=== PATIENT | female | born 1975 | race American Indian/Alaskan Native ===

== ENCOUNTER 2018-01-30 03:36 | Emergency (ER) | payer MEDICAID ==
[~2018-01-30] VITALS: Ht 172.7 cm; Wt 89.3 kg
[~2018-01-30 03:36] MED LIST: ALBU6.7H INH; CIP250T PO; CLIN-79 PO; CYCL-1 PO; DOCU-28 PO; DOXY-8 PO; HYDR-569 PO; MACROBID PO; MAGN296S29 PO; NITR100C6 PO; NO HOME MEDS; PANT20TA2 PO; PHEN-873 PO; PRED10TA23 PO; ZOF4T PO
[2018-01-30 04:39] LABS: PARTIAL THROMBOPLASTIN TIME 26 SECONDS (22-32)
[2018-01-30] MEDS ORDERED: cloNIDine 0.1 mg tablet PO ONE (04:39)
[2018-01-30 04:41] LABS: BASOPHILS % (AUTO) 0.4 % (0-1); EOSINOPHILS # (AUTO) 0.3 X10'3 (0-0.9); EOSINOPHILS % (AUTO) 4.9 % (0-6); HEMATOCRIT 32.6 % (35.0-45.0); LYMPHOCYTES # (AUTO) 1.8 X10'3 (1.1-4.8); LYMPHOCYTES % (AUTO) 27.6 % (21-51); MEAN CORPUSCULAR HEMOGLOBIN 26.6 PG (27.0-31.0); MEAN CORPUSCULAR HGB CONC 33.8 % (33.0-36.5); MEAN CORPUSCULAR VOLUME 78.6 FL (78-98); MEAN PLATELET VOLUME 7.5 FL (7.4-10.4); MONOCYTES # (AUTO) 0.5 X10'3 (0-0.9); MONOCYTES % (AUTO) 7.3 % (2-12); NEUTROPHILS # (AUTO) 3.8 X10'3 (1.8-7.7); NEUTROPHILS % (AUTO) 59.8 % (42-75); PLATELET COUNT 310 X10'3 (140-440); RED BLOOD COUNT 4.15 X10'6 (4.20-5.60); RED CELL DISTRIBUTION WIDTH 14.9 % (11.5-14.5); WHITE BLOOD COUNT 6.4 X10'3 (4.5-11.0)
[2018-01-30 04:48] LABS: ALANINE AMINOTRANSFERASE 22 U/L (12-78); ALBUMIN/GLOBULIN RATIO 0.6 (1.1-1.5); ALKALINE PHOSPHATASE 79 IU/L (46-116); ANION GAP 7 (8-16); ASPARTATE AMINO TRANSFERASE 15 U/L (10-37); BILIRUBIN,TOTAL 0.2 MG/DL (0.1-1.0); BLOOD UREA NITROGEN 15 MG/DL (7-18); BUN/CREATININE RATIO 16.1 (6.6-38.0); CALCIUM 8.6 MG/DL (8.5-10.1); CHLORIDE 104 MMOL/L (99-107); CREATININE 0.93 MG/DL (0.40-0.90); GLUCOSE 115 MG/DL (70-104); POTASSIUM 3.4 MMOL/L (3.5-5.1); SODIUM 141 MMOL/L (135-145); TOTAL PROTEIN 7.7 G/DL (6.4-8.2); eGFR 66 ML/MIN
[2018-01-30] MEDS ORDERED: LISI-600 PO (05:08)
[2018-01-30 05:29] VITALS: BP 150/94
[2018-01-30] MEDS ORDERED: cloNIDine 0.1 mg tablet PO SCH (08:00)
== END 2018-01-30 05:30 | disposition home or self-care (01) ==
LOC: ER 03:37
DX: R07.89 Other chest pain (principal); I10 Essential (primary) hypertension; I49.3 Ventricular premature depolarization; J45.909 Unspecified asthma, uncomplicated; G89.29 Other chronic pain; F17.200 Nicotine dependence, unspecified, uncomplicated; F11.10 Opioid abuse, uncomplicated; Z88.5 Allergy status to narcotic agent; Z88.0 Allergy status to penicillin; Z88.2 Allergy status to sulfonamides; Z56.0 Unemployment, unspecified; Z98.890 Other specified postprocedural states; Z79.899 Other long term (current) drug therapy
CPT/HCPCS: 36415; 71045; 80053; 84484; 85025; 85610; 85730; 93005; 99285

== ENCOUNTER 2018-02-13 14:10 | Emergency (ER) | payer MEDICAID ==
[~2018-02-13] VITALS: Ht 172.7 cm; Wt 70.0 kg
[~2018-02-13 14:10] MED LIST changes: +LISI-600 PO
[2018-02-13 15:17] VITALS: BP 127/77
[2018-02-13] MEDS ORDERED: AZIT250T PO (16:23)
== END 2018-02-13 16:38 | disposition home or self-care (01) ==
LOC: ER 14:10
DX: J06.9 Acute upper respiratory infection, unspecified (principal); I10 Essential (primary) hypertension; J45.909 Unspecified asthma, uncomplicated; G89.29 Other chronic pain; F11.10 Opioid abuse, uncomplicated; Z86.19 Personal history of other infectious and parasitic diseases; Z98.890 Other specified postprocedural states; Z85.89 Personal history of malignant neoplasm of other organs and systems; Z56.0 Unemployment, unspecified; Z88.0 Allergy status to penicillin; Z88.2 Allergy status to sulfonamides; Z88.5 Allergy status to narcotic agent; Z79.899 Other long term (current) drug therapy
CPT/HCPCS: 99283

== ENCOUNTER 2019-01-27 18:30 | Emergency (ER) | payer MEDICAID ==
[~2019-01-27] VITALS: Ht 172.7 cm; Wt 75.0 kg
[~2019-01-27 18:30] MED LIST changes: +AZIT250T PO; -CLIN-79 PO; +CLIN150C8 PO; +HYDR-4383 PO; -LISI-600 PO; +PHEN-786 PO; -PHEN-873 PO
[2019-01-27] MEDS ORDERED: acetaminophen 325mg tablet PO ONE (18:55)
--- NOTE | 2019-01-27 19:16 | NUR ---
Discussed pt's pain status w/ Dr Meraz. New orders received for Toradol IM to be followed by [facility] if ineffectived.
[2019-01-27] MEDS ORDERED: ketorolac trometh inj. 60 MG/2 ML VIAL IM ONE (19:20)
[2019-01-27] MEDS ORDERED: HYDROcodone/acetaminophen 10/325mg tab PO ONE (19:20)
[2019-01-27 19:34] VITALS: BP 141/77
[2019-01-27] MEDS ORDERED: HYDROmorphone 1 mg/ml syringe IM ONE (20:20)
[2019-01-27] MEDS ORDERED: ONDA4TAB6 PO (20:20)
[2019-01-27] MEDS ORDERED: HYDR-4353 PO (20:21)
== END 2019-01-27 21:26 | disposition home or self-care (01) ==
LOC: ER 18:31
DX: M23.91 Unspecified internal derangement of right knee (principal); I10 Essential (primary) hypertension; J45.909 Unspecified asthma, uncomplicated; G89.29 Other chronic pain; F11.90 Opioid use, unspecified, uncomplicated; Z86.19 Personal history of other infectious and parasitic diseases; Z85.89 Personal history of malignant neoplasm of other organs and systems; Z98.890 Other specified postprocedural states; Z98.51 Tubal ligation status; Z56.0 Unemployment, unspecified; Z88.0 Allergy status to penicillin; Z88.2 Allergy status to sulfonamides; Z88.5 Allergy status to narcotic agent; Z79.899 Other long term (current) drug therapy
CPT/HCPCS: 29505; 73564; 96372; 99283; J1170; J1885

== ENCOUNTER 2019-02-05 10:19 | Emergency (ER) | payer MEDICAID ==
[~2019-02-05] VITALS: Ht 172.7 cm; Wt 76.0 kg
[~2019-02-05 10:19] MED LIST changes: +HYDR-4353 PO; +ONDA4TAB6 PO
--- NOTE | 2019-02-05 10:55 | NUR ---
PT REPORTING FEELING PALPITATIONS. HEART MONITOR SHOWING PVC'S ABOUT EVERY 10-20 BEATS. EKG ORDERED, PT PLACED ON HEART MONITOR.
[2019-02-05] MEDS ORDERED: CLIN150C8 PO (11:59)
[2019-02-05 12:12] VITALS: BP 142/80
== END 2019-02-05 12:13 | disposition home or self-care (01) ==
LOC: ER 10:19
DX: L02.415 Cutaneous abscess of right lower limb (principal); L03.115 Cellulitis of right lower limb; R00.2 Palpitations; I10 Essential (primary) hypertension; J45.909 Unspecified asthma, uncomplicated; G89.29 Other chronic pain; F15.90 Other stimulant use, unspecified, uncomplicated; Z86.19 Personal history of other infectious and parasitic diseases; Z85.89 Personal history of malignant neoplasm of other organs and systems; Z98.51 Tubal ligation status; Z98.890 Other specified postprocedural states; Z56.0 Unemployment, unspecified; Z88.0 Allergy status to penicillin; Z88.2 Allergy status to sulfonamides; Z88.5 Allergy status to narcotic agent; Z79.899 Other long term (current) drug therapy
CPT/HCPCS: 10060; 93005; 99283

== ENCOUNTER 2019-07-09 23:14 | Emergency (ER) | payer MEDICAID ==
[~2019-07-09] VITALS: Ht 172.7 cm; Wt 75.0 kg
[~2019-07-09 23:14] MED LIST changes: -ALBU6.7H INH; +ALBU6.7H9 INH; -HYDR-4353 PO
[2019-07-09 23:18] VITALS: BP 169/112
[2019-07-09] MEDS ORDERED: CEPH500C5 PO (23:28)
[2019-07-09] MEDS ORDERED: cephalexin 250mg capsule PO ONE (23:30)
[2019-07-09] MEDS ORDERED: LIDOcaine 1% w/epiNEPHrine 1:200,000 30ml vial IM ONE (23:30)
== END 2019-07-09 23:54 | disposition home or self-care (01) ==
LOC: ER 23:14
DX: L02.415 Cutaneous abscess of right lower limb (principal); L03.115 Cellulitis of right lower limb; I10 Essential (primary) hypertension; J45.909 Unspecified asthma, uncomplicated; G89.29 Other chronic pain; F31.9 Bipolar disorder, unspecified; F15.90 Other stimulant use, unspecified, uncomplicated; Z98.51 Tubal ligation status; Z98.890 Other specified postprocedural states; Z56.0 Unemployment, unspecified; Z88.5 Allergy status to narcotic agent; Z79.2 Long term (current) use of antibiotics; Z79.899 Other long term (current) drug therapy
CPT/HCPCS: 10060; 99283

== ENCOUNTER 2019-09-15 11:04 | Emergency (ER) | payer MEDICAID ==
[~2019-09-15] VITALS: Ht 172.7 cm; Wt 90.0 kg
[~2019-09-15 11:04] MED LIST changes: +CEPH500C5 PO
[2019-09-15] MEDS ORDERED: normal saline 1000ML IV soln IVB ONE (11:40)
[2019-09-15] MEDS ORDERED: ketorolac tromethamine 15mg/ml inj. IV ONE (11:40)
--- NOTE | 2019-09-15 12:22 | NUR ---
TRIED IV TWICE ON THE PT ALSO BY NURSE LUZ PENA UNABLE TO START AN IV ,KRISTA ESCOBAR WILL TRY WITH ULTRASOUND GUIDE PT IS HARD TO STICK.INSTRUCTOR DECORATING IN ROOM TO TAKE PT FOR CT SCAN,PT SIGNIFICANT OTHER AT BEDSIDE.
[2019-09-15 12:24] VITALS: BP 126/80
[2019-09-15 12:32] LABS: BASOPHILS % (AUTO) 0.3 % (0-1); EOSINOPHILS # (AUTO) 0.1 X10'3 (0-0.9); EOSINOPHILS % (AUTO) 1.1 % (0-6); HEMATOCRIT 35.7 % (35.0-45.0); HEMOGLOBIN 11.9 g/dl (12.0-16.0); LYMPHOCYTES # (AUTO) 2.1 X10'3 (1.1-4.8); LYMPHOCYTES % (AUTO) 21.5 % (21-51); MEAN CORPUSCULAR HEMOGLOBIN 28.9 PG (27.0-31.0); MEAN CORPUSCULAR HGB CONC 33.3 g/dL (33.0-36.5); MEAN CORPUSCULAR VOLUME 87.1 FL (78-98); MEAN PLATELET VOLUME 7.9 FL (7.4-10.4); MONOCYTES # (AUTO) 0.5 X10'3 (0-0.9); MONOCYTES % (AUTO) 4.7 % (2-12); NEUTROPHILS # (AUTO) 7.2 X10'3 (1.8-7.7); NEUTROPHILS % (AUTO) 72.4 % (42-75); PLATELET COUNT 210 X10'3 (140-440); RED CELL DISTRIBUTION WIDTH 15.4 % (11.5-14.5); WHITE BLOOD COUNT 9.9 X10'3 (4.5-11.0)
[2019-09-15 12:47] LABS: URINE HCG NEGATIVE (NEG)
--- NOTE | 2019-09-15 12:53 | NUR ---
pt back from ct scan,urine obtained and sent to lab,iv started ,medicated with torodol inj as prescribed by provider,iv fluid infusing as per md orders.
[2019-09-15 12:58] LABS: ALANINE AMINOTRANSFERASE 19 U/L (12-78); ALBUMIN 3.1 G/DL (3.4-5.0); ALBUMIN/GLOBULIN RATIO 0.8 (1.1-1.5); ALKALINE PHOSPHATASE 77 IU/L (46-116); ANION GAP 5 (8-16); ASPARTATE AMINO TRANSFERASE 17 U/L (10-37); BILIRUBIN,TOTAL 0.3 MG/DL (0.1-1.0); BLOOD UREA NITROGEN 15 MG/DL (7-18); BUN/CREATININE RATIO 13.8 (6.6-38.0); CALCIUM 8.2 MG/DL (8.5-10.1); CHLORIDE 106 MMOL/L (99-107); CREATININE 1.09 MG/DL (0.40-0.90); GLUCOSE 80 MG/DL (70-104); LIPASE < 50 U/L (73-393); POTASSIUM 4.1 MMOL/L (3.5-5.1); SODIUM 140 MMOL/L (135-145); eGFR 55 ML/MIN
[2019-09-15 12:58] LABS: CLARITY,URINE SLIGHTLY CLOUDY (Clear); COLOR,URINE YELLOW (Yellow); GLUCOSE, URINE NEGATIVE (Neg); KETONES,URINE TRACE mg/dl (Neg); LEUKOCYTE ESTERASE ,URINE TRACE (Neg); NITRITES, URINE NEGATIVE (Neg); OCCULT BLOOD,URINE TRACE-LYSED (Neg); PROTEIN,URINE NEGATIVE (Neg)
[2019-09-15 13:03] LABS: UA COLLECTION TYPE CLN CATCH MIDSTREAM
[2019-09-15 13:15] LABS: BACTERIA,URINE 4+ /HPF (Neg); RBC,URINE 0-2 /HPF (0-2); SQUAMOUS EPITHELIAL CELL,UR MANY /LPF (FEW)
[2019-09-15 13:16] LABS: MUCUS STRANDS FEW /LPF (Neg)
--- NOTE | 2019-09-15 13:32 | NUR ---
came back from 15 min break ,rn javed was covering,pt lft the room pulled her iv out and left with all her belonging ,md obregon wentto pt room to explain her that ct scan report is negative ,pt got upset as per dr obregon and she left without information . aware .
== END 2019-09-15 13:30 | disposition left against medical advice (07) ==
LOC: ER 11:05
DX: R10.31 Right lower quadrant pain (principal); I10 Essential (primary) hypertension; J45.909 Unspecified asthma, uncomplicated; G89.29 Other chronic pain; F31.9 Bipolar disorder, unspecified; F15.90 Other stimulant use, unspecified, uncomplicated; Z88.6 Allergy status to analgesic agent; Z91.041 Radiographic dye allergy status; Z79.899 Other long term (current) drug therapy; Z79.2 Long term (current) use of antibiotics; Z98.890 Other specified postprocedural states; Z98.51 Tubal ligation status; Z56.0 Unemployment, unspecified; Z85.41 Personal history of malignant neoplasm of cervix uteri; Z86.19 Personal history of other infectious and parasitic diseases
CPT/HCPCS: 36415; 74176; 80053; 81001; 81025; 83690; 85025; 96374; 99284; J1885; J7040

== ENCOUNTER 2019-11-18 09:15 | Emergency (ER) | payer MEDICAID ==
[~2019-11-18] VITALS: Ht 172.7 cm; Wt 93.4 kg
[2019-11-18 09:25] VITALS: BP 156/97
[2019-11-18] MEDS ORDERED: SULF1TAB49 PO (10:12)
[2019-11-18] MEDS ORDERED: METH-360 PO (10:17)
== END 2019-11-18 10:35 | disposition home or self-care (01) ==
LOC: ER 09:15
DX: S29.012A Strain of muscle and tendon of back wall of thorax, initial encounter (principal); M62.830 Muscle spasm of back; L73.8 Other specified follicular disorders; I10 Essential (primary) hypertension; J45.909 Unspecified asthma, uncomplicated; G89.29 Other chronic pain; F15.90 Other stimulant use, unspecified, uncomplicated; F17.200 Nicotine dependence, unspecified, uncomplicated; Z56.0 Unemployment, unspecified; Z86.14 Personal history of Methicillin resistant Staphylococcus aureus infection; Z98.890 Other specified postprocedural states; Z98.51 Tubal ligation status; Z79.899 Other long term (current) drug therapy; Z88.5 Allergy status to narcotic agent; Z91.041 Radiographic dye allergy status; X58.XXXA Exposure to other specified factors, initial encounter; Y93.89 Activity, other specified; Y92.89 Other specified places as the place of occurrence of the external cause; Y99.9 Unspecified external cause status
CPT/HCPCS: 99283

== ENCOUNTER 2020-05-02 13:10 | Emergency (ER) | payer MEDICAID ==
[~2020-05-02] VITALS: Ht 172.7 cm; Wt 96.8 kg
[~2020-05-02 13:10] MED LIST changes: +METH-360 PO
[2020-05-02 13:32] VITALS: BP 142/101
[2020-05-02] MEDS ORDERED: SULF1TAB49 PO (14:58)
[2020-05-02] MEDS ORDERED: CEPH500C5 PO (14:58)
[2020-05-02] MEDS ORDERED: LACT1CAP65 PO (14:58)
== END 2020-05-02 15:07 | disposition home or self-care (01) ==
LOC: ER 13:11
DX: L03.115 Cellulitis of right lower limb (principal); I10 Essential (primary) hypertension; J45.909 Unspecified asthma, uncomplicated; G89.29 Other chronic pain; F31.9 Bipolar disorder, unspecified; F15.90 Other stimulant use, unspecified, uncomplicated; Z86.19 Personal history of other infectious and parasitic diseases; Z87.440 Personal history of urinary (tract) infections; Z86.14 Personal history of Methicillin resistant Staphylococcus aureus infection; Z98.51 Tubal ligation status; Z98.890 Other specified postprocedural states; Z56.0 Unemployment, unspecified; Z88.5 Allergy status to narcotic agent; Z79.2 Long term (current) use of antibiotics; Z79.899 Other long term (current) drug therapy
CPT/HCPCS: 99283

== ENCOUNTER 2020-05-04 16:25 | Emergency (ER) | payer MEDICAID ==
[~2020-05-04 16:25] MED LIST changes: +LACT1CAP65 PO; +SULF1TAB49 PO
[2020-05-04] MEDS ORDERED: LIDOcaine 1% W/epiNEPHrine 1:200,000 10ml vial IJ ONE (18:05)
[2020-05-04] MEDS ORDERED: HYDROcodone/acetaminophen 5mg/325mg tablet PO ONE (18:40)
[2020-05-04] MEDS ORDERED: HYDR-3965 PO (18:46)
[2020-05-04 19:03] VITALS: BP 143/98
== END 2020-05-04 19:06 | disposition home or self-care (01) ==
LOC: ER 16:26
DX: L02.415 Cutaneous abscess of right lower limb (principal); L03.115 Cellulitis of right lower limb; I10 Essential (primary) hypertension; J45.909 Unspecified asthma, uncomplicated; G89.29 Other chronic pain; F15.90 Other stimulant use, unspecified, uncomplicated; F31.9 Bipolar disorder, unspecified; Z86.19 Personal history of other infectious and parasitic diseases; Z98.51 Tubal ligation status; Z98.890 Other specified postprocedural states; Z56.0 Unemployment, unspecified; Z88.5 Allergy status to narcotic agent; Z79.2 Long term (current) use of antibiotics; Z79.899 Other long term (current) drug therapy
CPT/HCPCS: 10060; 99283

== ENCOUNTER 2020-05-06 15:18 | Emergency (ER) | payer MEDICAID ==
[~2020-05-06] VITALS: Ht 172.7 cm; Wt 60.0 kg
[~2020-05-06 15:18] MED LIST changes: +HYDR-3965 PO
[2020-05-06 15:26] VITALS: BP 142/88
== END 2020-05-06 16:54 | disposition home or self-care (01) ==
LOC: ER 15:19
DX: L02.419 Cutaneous abscess of limb, unspecified (principal); L03.115 Cellulitis of right lower limb; I10 Essential (primary) hypertension; J45.909 Unspecified asthma, uncomplicated; G89.29 Other chronic pain; F31.9 Bipolar disorder, unspecified; F17.200 Nicotine dependence, unspecified, uncomplicated; F15.90 Other stimulant use, unspecified, uncomplicated; Z76.89 Persons encountering health services in other specified circumstances; Z87.440 Personal history of urinary (tract) infections; Z86.14 Personal history of Methicillin resistant Staphylococcus aureus infection; Z85.41 Personal history of malignant neoplasm of cervix uteri; Z98.51 Tubal ligation status; Z98.890 Other specified postprocedural states; Z56.0 Unemployment, unspecified; Z88.5 Allergy status to narcotic agent; Z79.2 Long term (current) use of antibiotics; Z79.899 Other long term (current) drug therapy
CPT/HCPCS: 99282

== ENCOUNTER 2020-09-18 12:13 | Emergency (ER) | payer MEDICAID ==
[~2020-09-18] VITALS: Ht 172.7 cm; Wt 101.1 kg
[~2020-09-18 12:13] MED LIST changes: -HYDR-3965 PO; -SULF1TAB49 PO
[2020-09-18 12:50] VITALS: BP 143/97
[2020-09-18] MEDS ORDERED: SULF1TAB49 PO (15:09)
[2020-09-18] MEDS ORDERED: CEPH500C5 PO (15:09)
== END 2020-09-18 15:58 | disposition home or self-care (01) ==
LOC: ER 12:13
DX: L03.115 Cellulitis of right lower limb (principal); I10 Essential (primary) hypertension; J45.909 Unspecified asthma, uncomplicated; G89.29 Other chronic pain; M54.9 Dorsalgia, unspecified; F31.9 Bipolar disorder, unspecified; Q89.9 Congenital malformation, unspecified; Z85.41 Personal history of malignant neoplasm of cervix uteri; Z56.0 Unemployment, unspecified; Z88.5 Allergy status to narcotic agent; Z79.899 Other long term (current) drug therapy; Z79.2 Long term (current) use of antibiotics
CPT/HCPCS: 99283

== ENCOUNTER → 2020-09-29 | Emergency (ER) | payer MEDICAID ==
[~2020-09-29] VITALS: Ht 172.7 cm; Wt 99.7 kg
[~2020-09-29] MED LIST changes: +CEPH250T PO; +DOXY100T56 PO; +IBUP-1984 PO
[2020-09-29 13:00] VITALS: BP 114/90
== END | disposition home or self-care (01) ==
LOC: ER 12:42
DX: U07.1 COVID-19 (principal); L03.113 Cellulitis of right upper limb; I10 Essential (primary) hypertension; Z87.448 Personal history of other diseases of urinary system; G89.29 Other chronic pain; F31.9 Bipolar disorder, unspecified; J45.909 Unspecified asthma, uncomplicated; Z88.5 Allergy status to narcotic agent; Z79.899 Other long term (current) drug therapy; Z20.828 Contact with and (suspected) exposure to other viral communicable diseases
CPT/HCPCS: 36415; 87635; 99283; 99284

== ENCOUNTER 2021-03-16 20:20 | Emergency (ER) | payer MEDICAID ==
[~2021-03-16 20:20] MED LIST changes: +CEPH-585 PO; -CEPH250T PO; -CEPH500C5 PO; -DOXY100T56 PO; -IBUP-1984 PO
== END 2021-03-16 20:55 | disposition left against medical advice (07) ==
LOC: ER 20:20
DX: Z53.21 Procedure and treatment not carried out due to patient leaving prior to being seen by health care provider (principal)

== ENCOUNTER 2021-03-18 14:21 | Emergency (ER) | payer MEDICAID | END 2021-03-18 15:06 | disposition left against medical advice (07) | LOC: ER 14:22 | DX: M79.643 Pain in unspecified hand (principal); Z53.21 Procedure and treatment not carried out due to patient leaving prior to being seen by health care provider ==

== ENCOUNTER 2021-03-20 15:42 | Emergency (ER) | payer MEDICAID ==
[~2021-03-20] VITALS: Ht 175.3 cm; Wt 95.5 kg
[2021-03-20] MEDS ORDERED: SULF1TAB49 PO (17:18)
[2021-03-20] MEDS ORDERED: CEPH-585 PO (17:18)
[2021-03-20 17:28] VITALS: BP 129/105
== END 2021-03-20 17:29 | disposition home or self-care (01) ==
LOC: ER 15:43
DX: L02.414 Cutaneous abscess of left upper limb (principal); I10 Essential (primary) hypertension; J45.909 Unspecified asthma, uncomplicated; G89.29 Other chronic pain; F31.9 Bipolar disorder, unspecified; Z98.51 Tubal ligation status; Z98.890 Other specified postprocedural states; Z56.0 Unemployment, unspecified; Z88.5 Allergy status to narcotic agent; Z79.899 Other long term (current) drug therapy
CPT/HCPCS: 99284

== ENCOUNTER 2021-06-03 07:11 | Emergency (ER) | payer MEDICAID ==
[~2021-06-03] VITALS: Ht 172.7 cm; Wt 93.2 kg
[2021-06-03 07:14] VITALS: BP 177/110
== END 2021-06-03 12:50 | disposition left against medical advice (07) ==
LOC: ER 07:13
DX: G43.909 Migraine, unspecified, not intractable, without status migrainosus (principal); Z53.21 Procedure and treatment not carried out due to patient leaving prior to being seen by health care provider

== ENCOUNTER 2021-06-07 17:01 | Emergency (ER) | payer MEDICAID ==
[~2021-06-07] VITALS: Ht 172.7 cm; Wt 93.0 kg
[2021-06-07 17:33] VITALS: BP 148/89
== END 2021-06-07 17:58 | disposition home or self-care (01) ==
LOC: ER 17:02
DX: S01.01XD Laceration without foreign body of scalp, subsequent encounter (principal); I10 Essential (primary) hypertension; J45.909 Unspecified asthma, uncomplicated; Z86.19 Personal history of other infectious and parasitic diseases; Z98.51 Tubal ligation status; Z98.890 Other specified postprocedural states; Z56.0 Unemployment, unspecified; Z88.5 Allergy status to narcotic agent; Z79.899 Other long term (current) drug therapy; Z48.02 Encounter for removal of sutures; X58.XXXD Exposure to other specified factors, subsequent encounter
CPT/HCPCS: 99281

== ENCOUNTER 2022-02-06 15:21 | Emergency (ER) | payer MEDICAID ==
[~2022-02-06] VITALS: Ht 172.7 cm; Wt 84.1 kg
[~2022-02-06 15:21] MED LIST changes: -CEPH-585 PO
[2022-02-06 16:07] LABS: ALANINE AMINOTRANSFERASE 21 U/L (12-78); ALBUMIN 3.6 G/DL (3.4-5.0); ALBUMIN/GLOBULIN RATIO 0.9 (1.1-1.5); ALKALINE PHOSPHATASE 77 IU/L (46-116); ANION GAP 6 (8-16); ASPARTATE AMINO TRANSFERASE 22 U/L (10-37); BILIRUBIN,TOTAL 0.3 MG/DL (0.1-1.0); BLOOD UREA NITROGEN 11 MG/DL (7-18); BUN/CREATININE RATIO 14.1 (6.6-38.0); CALCIUM 8.9 MG/DL (8.5-10.1); CHLORIDE 107 MMOL/L (99-107); CREATININE 0.78 MG/DL (0.40-0.90); GLUCOSE 121 MG/DL (70-104); LIPASE < 50 U/L (73-393); POTASSIUM 4.1 MMOL/L (3.5-5.1); SODIUM 141 MMOL/L (135-145); TOTAL CARBON DIOXIDE 27.6 MMOL/L (24-32); TOTAL PROTEIN 7.4 G/DL (6.4-8.2); eGFR 80 ML/MIN
[2022-02-06 16:08] LABS: BASOPHILS % (AUTO) 0.5 % (0-1); EOSINOPHILS # (AUTO) 0.2 X10'3 (0-0.9); HEMATOCRIT 39.8 % (35.0-45.0); HEMOGLOBIN 13.3 g/dl (12.0-16.0); LYMPHOCYTES # (AUTO) 1.7 X10'3 (1.1-4.8); LYMPHOCYTES % (AUTO) 21.9 % (21-51); MEAN CORPUSCULAR HEMOGLOBIN 28.6 PG (27.0-31.0); MEAN CORPUSCULAR HGB CONC 33.3 g/dL (33.0-36.5); MEAN CORPUSCULAR VOLUME 85.9 FL (78-98); MEAN PLATELET VOLUME 7.9 FL (7.4-10.4); MONOCYTES # (AUTO) 0.3 X10'3 (0-0.9); MONOCYTES % (AUTO) 4.4 % (2-12); NEUTROPHILS # (AUTO) 5.3 X10'3 (1.8-7.7); NEUTROPHILS % (AUTO) 70.2 % (42-75); PLATELET COUNT 298 X10'3 (140-440); RED BLOOD COUNT 4.64 X10'6 (4.20-5.60); RED CELL DISTRIBUTION WIDTH 15.1 % (11.5-14.5); WHITE BLOOD COUNT 7.6 X10'3 (4.5-11.0)
[2022-02-06 16:24] LABS: URINE HCG NEGATIVE (NEG)
[2022-02-06 16:25] LABS: CLARITY,URINE CLOUDY (Clear); COLOR,URINE YELLOW (Yellow); GLUCOSE, URINE NEGATIVE (Neg); KETONES,URINE NEGATIVE (Neg); LEUKOCYTE ESTERASE ,URINE NEGATIVE (Neg); NITRITES, URINE POSITIVE (Neg); OCCULT BLOOD,URINE TRACE-INTACT (Neg); PROTEIN,URINE NEGATIVE (Neg); UROBILINOGEN,URINE 0.2 E.U/dL (0.2-1.0)
[2022-02-06 16:26] LABS: UA COLLECTION TYPE CLN CATCH MIDSTREAM
[2022-02-06] MEDS ORDERED: ondansetron/PF 4mg/2ml inj IV ONE (16:35)
[2022-02-06] MEDS ORDERED: normal saline 1000ML IV soln IVB ONE (16:35)
[2022-02-06 16:38] LABS: MUCUS STRANDS MODERATE /LPF (Neg); SQUAMOUS EPITHELIAL CELL,UR MODERATE /LPF (FEW)
[2022-02-06 16:40] LABS: BACTERIA,URINE 4+ /HPF (Neg); CAL OXALATE CRYSTALS 1+ /HPF (NEGATIVE); RBC,URINE 0-2 /HPF (0-2)
[2022-02-06] MEDS ORDERED: ceFAZolin/D5W- 1GM premix 50 ML IV ONE (16:45)
[2022-02-06] MEDS ORDERED: NITR100C6 PO (16:50)
[2022-02-06] MEDS ORDERED: ONDA4TAB12 PO (17:15)
[2022-02-06 19:09] VITALS: BP 158/105
== END 2022-02-06 19:12 | disposition home or self-care (01) ==
LOC: ER 15:21
DX: R11.2 Nausea with vomiting, unspecified (principal); N30.00 Acute cystitis without hematuria; J45.909 Unspecified asthma, uncomplicated; I10 Essential (primary) hypertension; G89.29 Other chronic pain; M54.9 Dorsalgia, unspecified; F31.9 Bipolar disorder, unspecified; F17.210 Nicotine dependence, cigarettes, uncomplicated; Z56.0 Unemployment, unspecified; Z88.5 Allergy status to narcotic agent; Z88.8 Allergy status to other drugs, medicaments and biological substances; Z79.899 Other long term (current) drug therapy
CPT/HCPCS: 36415; 80053; 81001; 81025; 83690; 85025; 87077; 87088; 87186; 96361; 96365; 96375; 99284; J0690; J2405; J7030

== ENCOUNTER 2022-03-07 07:55 | Emergency (ER) | payer MEDICAID ==
[~2022-03-07] VITALS: Ht 172.7 cm; Wt 77.3 kg
[~2022-03-07 07:55] MED LIST changes: +ONDA4TAB12 PO
[2022-03-07 08:29] LABS: CLARITY,URINE SLIGHTLY CLOUDY (Clear); COLOR,URINE YELLOW (Yellow); GLUCOSE, URINE NEGATIVE (Neg); KETONES,URINE NEGATIVE (Neg); LEUKOCYTE ESTERASE ,URINE NEGATIVE (Neg); NITRITES, URINE POSITIVE (Neg); OCCULT BLOOD,URINE LARGE (Neg); PROTEIN,URINE TRACE mg/dl (Neg); UROBILINOGEN,URINE 0.2 E.U/dL (0.2-1.0)
[2022-03-07 08:31] LABS: UA COLLECTION TYPE CLN CATCH MIDSTREAM
[2022-03-07] MEDS ORDERED: iohexol 350MG/ML 100ml bottle IV ONE (08:36)
[2022-03-07 08:37] LABS: BACTERIA,URINE 4+ /HPF (Neg); RBC,URINE TNTC /HPF (0-2); SQUAMOUS EPITHELIAL CELL,UR MANY /LPF (FEW); WBC,URINE NONE SEEN /HPF (0-4)
[2022-03-07 08:38] LABS: MUCUS STRANDS NONE SEEN /LPF (Neg)
[2022-03-07 08:41] LABS: BASOPHILS % (AUTO) 0.2 % (0-1); EOSINOPHILS # (AUTO) 0.1 X10'3 (0-0.9); EOSINOPHILS % (AUTO) 1.4 % (0-6); HEMOGLOBIN 12.9 g/dl (12.0-16.0); LYMPHOCYTES # (AUTO) 1.8 X10'3 (1.1-4.8); LYMPHOCYTES % (AUTO) 23.3 % (21-51); MEAN CORPUSCULAR HEMOGLOBIN 28.2 PG (27.0-31.0); MEAN CORPUSCULAR VOLUME 85.3 FL (78-98); MEAN PLATELET VOLUME 7.6 FL (7.4-10.4); MONOCYTES # (AUTO) 0.4 X10'3 (0-0.9); MONOCYTES % (AUTO) 4.9 % (2-12); NEUTROPHILS # (AUTO) 5.4 X10'3 (1.8-7.7); NEUTROPHILS % (AUTO) 70.2 % (42-75); PLATELET COUNT 289 X10'3 (140-440); RED BLOOD COUNT 4.58 X10'6 (4.20-5.60); RED CELL DISTRIBUTION WIDTH 14.7 % (11.5-14.5); WHITE BLOOD COUNT 7.7 X10'3 (4.5-11.0)
[2022-03-07 08:45] LABS: ALBUMIN 3.2 G/DL (3.4-5.0); ANION GAP 7 (8-16); BILIRUBIN,TOTAL 0.2 MG/DL (0.1-1.0); BLOOD UREA NITROGEN 13 MG/DL (7-18); BUN/CREATININE RATIO 16.5 (6.6-38.0); CALCIUM 8.3 MG/DL (8.5-10.1); CHLORIDE 106 MMOL/L (99-107); CREATININE 0.79 MG/DL (0.40-0.90); GLUCOSE 91 MG/DL (70-104); POTASSIUM 3.6 MMOL/L (3.5-5.1); SODIUM 141 MMOL/L (135-145); TOTAL CARBON DIOXIDE 27.6 MMOL/L (24-32); TOTAL PROTEIN 6.9 G/DL (6.4-8.2); eGFR 78 ML/MIN
[2022-03-07 08:46] LABS: ALANINE AMINOTRANSFERASE 16 U/L (12-78); ALBUMIN/GLOBULIN RATIO 0.9 (1.1-1.5); ALKALINE PHOSPHATASE 64 IU/L (46-116); ASPARTATE AMINO TRANSFERASE 11 U/L (10-37)
[2022-03-07] MEDS ORDERED: HYDR-3972 PO (09:49)
[2022-03-07] MEDS ORDERED: ORPH100T2 PO (09:49)
[2022-03-07] MEDS ORDERED: HYDROcodone/acetaminophen 10/325mg tab PO ONE (10:15)
[2022-03-07] MEDS ORDERED: ketorolac trometh. 30mg/ml inj. IM ONE (10:15)
[2022-03-07 10:29] VITALS: BP 172/104
[2022-03-07 10:51] LABS: URINE AMPHETAMINE SCREEN POSITIVE (Neg); URINE BARBITUATE SCREEN NEGATIVE (Neg); URINE BENZODIAZEPINES SCREEN NEGATIVE (Neg); URINE CANNABINOID SCREEN NEGATIVE (Neg); URINE COCAINE SCREEN NEGATIVE (Neg); URINE METHADONE SCREEN NEGATIVE (Neg); URINE OPIATE SCREEN POSITIVE (Neg); URINE PHENCYCLIDINE SCREEN NEGATIVE (Neg)
== END 2022-03-07 10:30 | disposition home or self-care (01) ==
LOC: ER 07:55
DX: M54.2 Cervicalgia (principal); R51.9 Headache, unspecified; R20.0 Anesthesia of skin; I10 Essential (primary) hypertension; J45.909 Unspecified asthma, uncomplicated; Z86.14 Personal history of Methicillin resistant Staphylococcus aureus infection; F31.9 Bipolar disorder, unspecified; Z56.0 Unemployment, unspecified; Z79.899 Other long term (current) drug therapy; Z88.0 Allergy status to penicillin; Z88.5 Allergy status to narcotic agent
CPT/HCPCS: 36415; 70450; 70496; 70498; 71045; 80053; 80305; 81001; 84484; 85025; 93005; 96372; 99285; J1885; Q9967

== ENCOUNTER 2022-08-08 00:31 | Emergency (ER) | payer MEDICAID ==
[~2022-08-08] VITALS: Ht 172.7 cm; Wt 81.8 kg
[~2022-08-08 00:31] MED LIST changes: +ALBU6.7H14 INH; -ALBU6.7H9 INH; +ORPH100T2 PO
[2022-08-08] MEDS ORDERED: sulfamethoxazole/trimethoprim DS (800/160mg) tablet PO ONE (01:15)
[2022-08-08] MEDS ORDERED: SULF1TAB49 PO (01:15)
[2022-08-08] MEDS ORDERED: ondansetron 4mg rapidly disintigrating tab PO ONE (01:15)
[2022-08-08 01:36] VITALS: BP 128/82
== END 2022-08-08 01:38 | disposition home or self-care (01) ==
LOC: ER 00:32
DX: N39.0 Urinary tract infection, site not specified (principal); I10 Essential (primary) hypertension; G89.29 Other chronic pain; M54.50 Low back pain, unspecified; F31.9 Bipolar disorder, unspecified; Z88.0 Allergy status to penicillin; Z88.5 Allergy status to narcotic agent; Z98.51 Tubal ligation status; Z56.0 Unemployment, unspecified
CPT/HCPCS: 99283

== ENCOUNTER 2022-08-12 22:39 | Emergency (ER) | payer MEDICAID ==
[~2022-08-12] VITALS: Ht 172.7 cm; Wt 89.0 kg
[~2022-08-12 22:39] MED LIST changes: +SULF1TAB49 PO
[2022-08-12 23:45] LABS: BASOPHILS % (AUTO) 0.3 % (0-1); EOSINOPHILS # (AUTO) 0.1 X10'3 (0-0.9); EOSINOPHILS % (AUTO) 1.6 % (0-6); HEMATOCRIT 38.9 % (35.0-45.0); LYMPHOCYTES # (AUTO) 1.9 X10'3 (1.1-4.8); MEAN CORPUSCULAR HEMOGLOBIN 29.2 PG (27.0-31.0); MEAN CORPUSCULAR HGB CONC 33.4 g/dL (33.0-36.5); MEAN CORPUSCULAR VOLUME 87.2 FL (78-98); MEAN PLATELET VOLUME 7.5 FL (7.4-10.4); MONOCYTES # (AUTO) 0.4 X10'3 (0-0.9); MONOCYTES % (AUTO) 6.1 % (2-12); NEUTROPHILS # (AUTO) 3.7 X10'3 (1.8-7.7); PLATELET COUNT 284 X10'3 (140-440); RED BLOOD COUNT 4.46 X10'6 (4.20-5.60); RED CELL DISTRIBUTION WIDTH 14.3 % (11.5-14.5)
[2022-08-12 23:56] LABS: ALANINE AMINOTRANSFERASE 17 U/L (12-78); ALBUMIN 3.6 G/DL (3.4-5.0); ALKALINE PHOSPHATASE 74 IU/L (46-116); ANION GAP 9 (8-16); ASPARTATE AMINO TRANSFERASE 18 U/L (10-37); BILIRUBIN,TOTAL 0.1 MG/DL (0.1-1.0); BLOOD UREA NITROGEN 16 MG/DL (7-18); BUN/CREATININE RATIO 13.7 (6.6-38.0); CALCIUM 8.9 MG/DL (8.5-10.1); CHLORIDE 101 MMOL/L (99-107); CREATININE 1.17 MG/DL (0.40-0.90); GLUCOSE 87 MG/DL (70-104); POTASSIUM 4.1 MMOL/L (3.5-5.1); SODIUM 137 MMOL/L (135-145); TOTAL CARBON DIOXIDE 26.8 MMOL/L (24-32); TOTAL PROTEIN 7.3 G/DL (6.4-8.2); eGFR 50 ML/MIN
[2022-08-13 03:47] LABS: CLARITY,URINE CLEAR (Clear); COLOR,URINE YELLOW (Yellow); GLUCOSE, URINE NEGATIVE (Neg); KETONES,URINE NEGATIVE (Neg); LEUKOCYTE ESTERASE ,URINE NEGATIVE (Neg); NITRITES, URINE NEGATIVE (Neg); OCCULT BLOOD,URINE NEGATIVE (Neg); PH,URINE 5.5 (4.8-8.0); PROTEIN,URINE NEGATIVE (Neg); UROBILINOGEN,URINE 0.2 E.U/dL (0.2-1.0)
[2022-08-13 03:53] LABS: UA COLLECTION TYPE CLN CATCH MIDSTREAM
[2022-08-13 04:03] LABS: C-REACTIVE PROTEIN 0.05 MG/DL (0.0-0.5)
[2022-08-13 04:24] LABS: URINE AMPHETAMINE SCREEN POSITIVE (Neg); URINE BARBITUATE SCREEN NEGATIVE (Neg); URINE BENZODIAZEPINES SCREEN NEGATIVE (Neg); URINE CANNABINOID SCREEN NEGATIVE (Neg); URINE COCAINE SCREEN POSITIVE (Neg); URINE METHADONE SCREEN NEGATIVE (Neg); URINE OPIATE SCREEN NEGATIVE (Neg); URINE PHENCYCLIDINE SCREEN NEGATIVE (Neg)
[2022-08-13] MEDS ORDERED: furosemide 20MG tablet PO ONE ×2 (04:25→05:50)
--- NOTE | 2022-08-13 04:49 | NUR ---
po med given
--- NOTE | 2022-08-13 05:59 | NUR ---
po med given
== END 2022-08-13 06:11 | disposition home or self-care (01) ==
LOC: ER 22:40
DX: R60.0 Localized edema (principal); F19.10 Other psychoactive substance abuse, uncomplicated; R06.02 Shortness of breath; N39.0 Urinary tract infection, site not specified; I10 Essential (primary) hypertension; J45.909 Unspecified asthma, uncomplicated; G89.29 Other chronic pain; F31.9 Bipolar disorder, unspecified; F15.90 Other stimulant use, unspecified, uncomplicated; Z86.19 Personal history of other infectious and parasitic diseases; Z86.14 Personal history of Methicillin resistant Staphylococcus aureus infection; Z85.41 Personal history of malignant neoplasm of cervix uteri; Z98.51 Tubal ligation status; Z98.890 Other specified postprocedural states; Z56.0 Unemployment, unspecified; Z88.0 Allergy status to penicillin; Z88.5 Allergy status to narcotic agent; Z79.2 Long term (current) use of antibiotics; Z79.899 Other long term (current) drug therapy
CPT/HCPCS: 36415; 71045; 80053; 80305; 81003; 83735; 83880; 84484; 85025; 86140; 93005; 99285

== ENCOUNTER 2023-02-24 20:09 | Emergency (ER) | payer MEDICAID ==
[~2023-02-24] VITALS: Ht 172.7 cm; Wt 78.0 kg
[~2023-02-24 20:09] MED LIST changes: +METH4TAB3 PO; +NAPR-56 PO; -ORPH100T2 PO; +ORPH100T4 PO; -SULF1TAB49 PO
[2023-02-24 20:12] VITALS: BP 171/124
--- NOTE | 2023-02-24 20:33 | NUR ---
Pt in FTE. Pt c/o pain in her R hand. Pt states she was her aprox 1 week ago. Pt was given steroids and she feels worse and not better. Pt educated to POC. Pt in agreement. Pending providers eval and treatment.
[2023-02-24] MEDS ORDERED: ketorolac tromethamine 15mg/ml inj. IM ONE (21:25)
== END 2023-02-24 21:33 | disposition home or self-care (01) ==
LOC: ER 20:10
DX: M19.90 Unspecified osteoarthritis, unspecified site (principal); R22.31 Localized swelling, mass and lump, right upper limb; I10 Essential (primary) hypertension; G89.29 Other chronic pain; M54.9 Dorsalgia, unspecified; F31.9 Bipolar disorder, unspecified; F15.10 Other stimulant abuse, uncomplicated; Z86.14 Personal history of Methicillin resistant Staphylococcus aureus infection
CPT/HCPCS: 96372; 99283; J1885

== ENCOUNTER 2023-06-23 22:52 | Emergency (ER) | payer MEDICAID ==
[~2023-06-23] VITALS: Ht 172.7 cm; Wt 79.5 kg
[~2023-06-23 22:52] MED LIST changes: +CLIN-214 PO; -CLIN150C8 PO; -NAPR-56 PO
[2023-06-23 23:37] VITALS: BP 147/100; PULSE 78; RESP 14; O2SAT 100
[2023-06-24 00:04] VITALS: TEMP 97.7
[2023-06-24] MEDS ORDERED: DOXY-1 PO (01:11)
== END 2023-06-24 01:20 | disposition home or self-care (01) ==
LOC: ER 22:52
DX: S80.861A Insect bite (nonvenomous), right lower leg, initial encounter (principal); W57.XXXA Bitten or stung by nonvenomous insect and other nonvenomous arthropods, initial encounter; Y93.89 Activity, other specified; Y92.89 Other specified places as the place of occurrence of the external cause; Y99.8 Other external cause status
CPT/HCPCS: 99283

== ENCOUNTER 2023-09-15 18:21 | Emergency (ER) | payer MEDICAID ==
[~2023-09-15] VITALS: Ht 172.7 cm; Wt 92.4 kg
[2023-09-15 18:23] VITALS: BP 189/108; PULSE 91; TEMP 99.1; O2SAT 97
[2023-09-15] MEDS ORDERED: ketorolac trometh. 30mg/ml inj. IM ONE (18:40)
[2023-09-15 19:01] VITALS: RESP 18
== END 2023-09-15 19:15 | disposition home or self-care (01) ==
LOC: ER 18:22
DX: S93.401A Sprain of unspecified ligament of right ankle, initial encounter (principal); I10 Essential (primary) hypertension; J45.909 Unspecified asthma, uncomplicated; G89.29 Other chronic pain; F15.90 Other stimulant use, unspecified, uncomplicated; Z86.14 Personal history of Methicillin resistant Staphylococcus aureus infection; Z88.0 Allergy status to penicillin; Z88.8 Allergy status to other drugs, medicaments and biological substances; Z79.2 Long term (current) use of antibiotics; Z79.899 Other long term (current) drug therapy; X58.XXXA Exposure to other specified factors, initial encounter; Y93.89 Activity, other specified; Y92.89 Other specified places as the place of occurrence of the external cause; Y99.8 Other external cause status
CPT/HCPCS: 73610; 73630; 96372; 99284; J1885

== ENCOUNTER 2023-09-23 11:20 | Emergency (ER) | payer MEDICAID ==
[~2023-09-23] VITALS: Ht 172.7 cm; Wt 93.1 kg
[2023-09-23 12:06] LABS: BILIRUBIN,URINE NEGATIVE (Neg); CLARITY,URINE CLEAR (Clear); COLOR,URINE YELLOW (Yellow); GLUCOSE, URINE NEGATIVE (Neg); KETONES,URINE NEGATIVE (Neg); LEUKOCYTE ESTERASE ,URINE TRACE (Neg); NITRITES, URINE NEGATIVE (Neg); OCCULT BLOOD,URINE NEGATIVE (Neg); PH,URINE 5.5 (4.8-8.0); PROTEIN,URINE NEGATIVE (Neg); UROBILINOGEN,URINE 0.2 E.U/dL (0.2-1.0)
[2023-09-23 12:18] LABS: UA COLLECTION TYPE CLN CATCH MIDSTREAM
[2023-09-23 12:21] LABS: BACTERIA,URINE FEW /HPF (Neg); MUCUS STRANDS NONE SEEN /LPF (Neg); RBC,URINE NONE SEEN /HPF (0-2); SQUAMOUS EPITHELIAL CELL,UR MANY /LPF (FEW); TRICHOMONAS,URINE FEW /HPF (NEGATIVE); WBC,URINE 0-4 /HPF (0-4)
[2023-09-23 12:24] LABS: ALANINE AMINOTRANSFERASE 19 U/L (12-78); ALBUMIN 3.5 G/DL (3.4-5.0); ALKALINE PHOSPHATASE 87 IU/L (46-116); ANION GAP 8 (8-16); ASPARTATE AMINO TRANSFERASE 20 U/L (10-37); BILIRUBIN,TOTAL 0.2 MG/DL (0.1-1.0); BLOOD UREA NITROGEN 19 MG/DL (7-18); BUN/CREATININE RATIO 21.8 (10.0-20.0); CALCIUM 8.8 MG/DL (8.5-10.1); CHLORIDE 104 MMOL/L (99-107); CREATININE 0.87 MG/DL (0.40-0.90); GLUCOSE 69 MG/DL (70-104); POTASSIUM 4.1 MMOL/L (3.5-5.1); SODIUM 140 MMOL/L (135-145); TOTAL CARBON DIOXIDE 28.2 MMOL/L (24-32); eCRCL 80 ML/MIN; eGFR 69 ML/MIN
[2023-09-23 12:27] LABS: URIC ACID 3.1 MG/DL (2.5-6.2)
[2023-09-23 13:07] LABS: BASOPHILS % (AUTO) 0.6 % (0-1); EOSINOPHILS # (AUTO) 0.1 X10'3 (0-0.9); EOSINOPHILS % (AUTO) 2.2 % (0-6); HEMATOCRIT 36.6 % (35.0-45.0); HEMOGLOBIN 12.3 g/dl (12.0-16.0); LYMPHOCYTES % (AUTO) 32.2 % (21-51); MEAN CORPUSCULAR HEMOGLOBIN 29.4 PG (27.0-31.0); MEAN CORPUSCULAR HGB CONC 33.5 g/dL (33.0-36.5); MEAN CORPUSCULAR VOLUME 87.8 FL (78-98); MONOCYTES # (AUTO) 0.4 X10'3 (0-0.9); MONOCYTES % (AUTO) 7.1 % (2-12); NEUTROPHILS # (AUTO) 3.6 X10'3 (1.8-7.7); NEUTROPHILS % (AUTO) 57.9 % (42-75); PLATELET COUNT 280 X10'3 (140-440); RED BLOOD COUNT 4.17 X10'6 (4.20-5.60); RED CELL DISTRIBUTION WIDTH 14.3 % (11.5-14.5); WHITE BLOOD COUNT 6.3 X10'3 (4.5-11.0)
[2023-09-23 17:04] LABS: D-DIMER 2.14 MG/L FEU (0-0.50)
[2023-09-23] MEDS ORDERED: DOXYCYCLINE 100MG CAPSULE PO STA (19:34)
[2023-09-23] MEDS ORDERED: DOXY150T9 PO (19:37)
[2023-09-23 20:08] VITALS: BP 170/68; PULSE 80; RESP 18; TEMP 98; O2SAT 99
== END 2023-09-23 20:09 | disposition home or self-care (01) ==
LOC: ER 11:21
DX: L03.115 Cellulitis of right lower limb (principal); Z20.822 Contact with and (suspected) exposure to COVID-19; I10 Essential (primary) hypertension; J45.909 Unspecified asthma, uncomplicated; F15.90 Other stimulant use, unspecified, uncomplicated; Z88.0 Allergy status to penicillin; Z88.5 Allergy status to narcotic agent; Z91.041 Radiographic dye allergy status; Z79.899 Other long term (current) drug therapy; Z98.51 Tubal ligation status
CPT/HCPCS: 36415; 80053; 81001; 84550; 85025; 85379; 87502; 87503; 87811; 93971; 99284

== ENCOUNTER 2023-11-11 22:52 | Emergency (ER) | payer MEDICAID ==
[~2023-11-11] VITALS: Ht 172.7 cm; Wt 93.8 kg
[2023-11-12 01:34] LABS: URINE HCG NEGATIVE (NEG)
[2023-11-12 01:46] LABS: BILIRUBIN,URINE NEGATIVE (Neg); CLARITY,URINE CLEAR (Clear); COLOR,URINE STRAW (Yellow); GLUCOSE, URINE NEGATIVE (Neg); KETONES,URINE NEGATIVE (Neg); LEUKOCYTE ESTERASE ,URINE NEGATIVE (Neg); NITRITES, URINE NEGATIVE (Neg); OCCULT BLOOD,URINE NEGATIVE (Neg); PROTEIN,URINE NEGATIVE (Neg); UROBILINOGEN,URINE 0.2 E.U/dL (0.2-1.0)
[2023-11-12 01:51] LABS: UA COLLECTION TYPE CLN CATCH MIDSTREAM
[2023-11-12 03:44] VITALS: BP 161/92; PULSE 90; RESP 16; TEMP 97.3; O2SAT 98
[2023-11-12] MEDS ORDERED: acetaminophen 325mg tablet PO ONE (04:05)
[2023-11-12 05:40] LABS: URINE AMPHETAMINE SCREEN POSITIVE (Neg); URINE BARBITUATE SCREEN NEGATIVE (Neg); URINE BENZODIAZEPINES SCREEN NEGATIVE (Neg); URINE CANNABINOID SCREEN NEGATIVE (Neg); URINE COCAINE SCREEN NEGATIVE (Neg); URINE METHADONE SCREEN NEGATIVE (Neg); URINE OPIATE SCREEN NEGATIVE (Neg); URINE PHENCYCLIDINE SCREEN NEGATIVE (Neg)
== END 2023-11-12 04:56 | disposition left against medical advice (07) ==
LOC: ER 22:53
DX: F19.10 Other psychoactive substance abuse, uncomplicated (principal); R22.42 Localized swelling, mass and lump, left lower limb; M54.50 Low back pain, unspecified; I10 Essential (primary) hypertension; J45.909 Unspecified asthma, uncomplicated; G89.29 Other chronic pain; F15.90 Other stimulant use, unspecified, uncomplicated; Z56.0 Unemployment, unspecified; Z87.440 Personal history of urinary (tract) infections; Z98.51 Tubal ligation status; Z86.14 Personal history of Methicillin resistant Staphylococcus aureus infection; Z88.0 Allergy status to penicillin; Z88.8 Allergy status to other drugs, medicaments and biological substances; Z79.2 Long term (current) use of antibiotics; Z79.899 Other long term (current) drug therapy
CPT/HCPCS: 80305; 81003; 81025; 99283

== ENCOUNTER 2024-09-06 21:00 | Emergency (ER) | payer MEDICAID ==
[~2024-09-06] VITALS: Ht 172.7 cm; Wt 98.0 kg
[~2024-09-06 21:00] MED LIST changes: +ALBU18HF2 INH; +ONDA-243 PO; -ONDA4TAB12 PO; +OXYC-138 PO
[2024-09-06] MEDS: normal saline 1000ML IV soln IVB ONE (21:15)
[2024-09-06] MEDS: ondansetron/PF 4mg/2ml inj IV ONE (22:15)
[2024-09-06 22:29] LABS: BASOPHILS % (AUTO) 0.2 % (0-1); EOSINOPHILS % (AUTO) 0 % (0-6); HEMATOCRIT 40.6 % (35.0-45.0); HEMOGLOBIN 13.3 g/dl (12.0-16.0); LYMPHOCYTES # (AUTO) 0.7 X10'3 (1.1-4.8); LYMPHOCYTES % (AUTO) 5.1 % (21-51); MEAN CORPUSCULAR HEMOGLOBIN 28.9 PG (27.0-31.0); MEAN CORPUSCULAR HGB CONC 32.9 g/dL (33.0-36.5); MEAN CORPUSCULAR VOLUME 87.9 FL (78-98); MEAN PLATELET VOLUME 7.4 FL (7.4-10.4); MONOCYTES # (AUTO) 0.4 X10'3 (0-0.9); MONOCYTES % (AUTO) 2.8 % (2-12); NEUTROPHILS # (AUTO) 12.7 X10'3 (1.8-7.7); NEUTROPHILS % (AUTO) 91.9 % (42-75); PLATELET COUNT 235 X10'3 (140-440); RED BLOOD COUNT 4.61 X10'6 (4.20-5.60); RED CELL DISTRIBUTION WIDTH 14.1 % (11.5-14.5); WHITE BLOOD COUNT 13.8 X10'3 (4.5-11.0)
[2024-09-06 22:43] LABS: ALANINE AMINOTRANSFERASE 25 U/L (12-78); ALBUMIN 3.4 G/DL (3.4-5.0); ALBUMIN/GLOBULIN RATIO 0.9 (1.1-1.5); ALKALINE PHOSPHATASE 84 IU/L (46-116); ANION GAP 3 (8-16); ASPARTATE AMINO TRANSFERASE 33 U/L (10-37); BILIRUBIN,TOTAL 0.2 MG/DL (0.1-1.0); BLOOD UREA NITROGEN 15 MG/DL (7-18); BUN/CREATININE RATIO 16.7 (10.0-20.0); CALCIUM 8.7 MG/DL (8.5-10.1); CHLORIDE 103 MMOL/L (99-107); GLUCOSE 129 MG/DL (70-104); POTASSIUM 3.5 MMOL/L (3.5-5.1); SODIUM 137 MMOL/L (135-145); TOTAL CARBON DIOXIDE 31.4 MMOL/L (24-32); TOTAL PROTEIN 7.2 G/DL (6.4-8.2); eCRCL 76 ML/MIN; eGFR 67 ML/MIN
[2024-09-06 22:52] LABS: PRO BRAIN NATRIURETIC PEPTIDE 116 PG/ML (0-125)
[2024-09-06 23:03] LABS: BILIRUBIN,URINE NEGATIVE (Neg); CLARITY,URINE CLEAR (Clear); COLOR,URINE YELLOW (Yellow); GLUCOSE, URINE NEGATIVE (Neg); KETONES,URINE NEGATIVE (Neg); LEUKOCYTE ESTERASE ,URINE TRACE (Neg); NITRITES, URINE POSITIVE (Neg); OCCULT BLOOD,URINE NEGATIVE (Neg); PROTEIN,URINE NEGATIVE (Neg); UROBILINOGEN,URINE 0.2 E.U/dL (0.2-1.0)
[2024-09-06 23:07] LABS: UA COLLECTION TYPE VOIDED
[2024-09-06 23:13] LABS: SQUAMOUS EPITHELIAL CELL,UR FEW /LPF (FEW)
[2024-09-06 23:17] LABS: AMORPHOUS PHOSPHATES 2+; BACTERIA,URINE 2+ /HPF (Neg); MUCUS STRANDS NONE SEEN /LPF (Neg); RBC,URINE 0-2 /HPF (0-2)
[2024-09-06 23:21] LABS: URINE AMPHETAMINE SCREEN POSITIVE (Neg); URINE BARBITUATE SCREEN NEGATIVE (Neg); URINE BENZODIAZEPINES SCREEN NEGATIVE (Neg); URINE CANNABINOID SCREEN NEGATIVE (Neg); URINE COCAINE SCREEN NEGATIVE (Neg); URINE METHADONE SCREEN NEGATIVE (Neg); URINE OPIATE SCREEN NEGATIVE (Neg); URINE PHENCYCLIDINE SCREEN NEGATIVE (Neg)
[2024-09-06] MEDS ORDERED: NITR100C6 PO (23:25)
[2024-09-06] MEDS: nitrofuran monohydrate/nitrofuran macrocrysal 100 MG (MacroBID) capsule PO ONE (23:39)
[2024-09-06 23:55] VITALS: PULSE 94
[2024-09-07 01:43] VITALS: BP 145/87; RESP 15; TEMP 98.3; O2SAT 100
== END 2024-09-07 01:58 | disposition home or self-care (01) ==
LOC: ER 21:00
DX: N39.0 Urinary tract infection, site not specified (principal); R56.9 Unspecified convulsions; I10 Essential (primary) hypertension; G89.29 Other chronic pain; J45.909 Unspecified asthma, uncomplicated; Z88.0 Allergy status to penicillin; Z88.5 Allergy status to narcotic agent; Z79.899 Other long term (current) drug therapy; Z85.41 Personal history of malignant neoplasm of cervix uteri; Z98.51 Tubal ligation status; W19.XXXA Unspecified fall, initial encounter; Y93.55 Activity, bike riding; Y92.89 Other specified places as the place of occurrence of the external cause; Y99.8 Other external cause status
CPT/HCPCS: 36415; 70450; 74176; 80053; 80305; 81001; 83605; 83880; 84145; 84484; 85025; 87077; 87088; 87186; 93005; 96361; 96374; 99285; J2405; J7030; A6258; A6449

== ENCOUNTER 2024-10-12 18:58 | Emergency (ER) | payer MEDICAID ==
[~2024-10-12] VITALS: Ht 172.7 cm; Wt 81.8 kg
[2024-10-12 19:00] VITALS: BP 161/96; PULSE 78; RESP 14; TEMP 98.2; O2SAT 98
[2024-10-12] MEDS ORDERED: DOXY100C43 PO (20:32)
[2024-10-12] MEDS ORDERED: KETO120S5 TP (20:32)
[2024-10-12] MEDS ORDERED: IBUP-1984 PO (20:32)
== END 2024-10-12 21:12 | disposition home or self-care (01) ==
LOC: ER 18:59
DX: B35.0 Tinea barbae and tinea capitis (principal); I10 Essential (primary) hypertension; J45.909 Unspecified asthma, uncomplicated; G89.29 Other chronic pain; M54.9 Dorsalgia, unspecified; F31.9 Bipolar disorder, unspecified; Z85.41 Personal history of malignant neoplasm of cervix uteri; Z98.51 Tubal ligation status; F15.90 Other stimulant use, unspecified, uncomplicated; F17.210 Nicotine dependence, cigarettes, uncomplicated; Z56.0 Unemployment, unspecified; Z88.0 Allergy status to penicillin; Z88.5 Allergy status to narcotic agent; Z79.899 Other long term (current) drug therapy
CPT/HCPCS: 99283

== ENCOUNTER 2024-11-10 00:49 | Emergency (ER) | payer MEDICAID ==
[~2024-11-10] VITALS: Ht 172.7 cm; Wt 97.4 kg
[~2024-11-10 00:49] MED LIST changes: +IBUP-1984 PO; +KETO120S5 TP
[2024-11-10 00:54] VITALS: BP 171/96; PULSE 97; RESP 18; TEMP 97.9; O2SAT 97
== END 2024-11-10 02:41 | disposition home or self-care (01) ==
LOC: ER 00:50
DX: M66.0 Rupture of popliteal cyst (principal); F31.9 Bipolar disorder, unspecified; J45.909 Unspecified asthma, uncomplicated; I10 Essential (primary) hypertension; F15.90 Other stimulant use, unspecified, uncomplicated; Z85.41 Personal history of malignant neoplasm of cervix uteri; Z88.0 Allergy status to penicillin; Z88.5 Allergy status to narcotic agent; Z98.51 Tubal ligation status; Z98.890 Other specified postprocedural states
CPT/HCPCS: 93971; 99284

== ENCOUNTER 2025-03-05 17:29 | Emergency (ER) | payer MEDICAID ==
[~2025-03-05] VITALS: Ht 172.7 cm; Wt 95.4 kg
[~2025-03-05 17:29] MED LIST changes: -IBUP-1984 PO
[2025-03-05 17:32] VITALS: BP 194/118; PULSE 89; RESP 18; TEMP 97.8; O2SAT 96
[2025-03-05] MEDS ORDERED: LISI20TA28 PO (17:41)
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
[2025-03-05] MEDS ORDERED: hydrALAZINE 20mg/ml inj. IV ONE (17:45)
== END 2025-03-05 19:30 | disposition left against medical advice (07) ==
LOC: ER 17:30
DX: Z00.8 Encounter for other general examination (principal); I10 Essential (primary) hypertension; J45.909 Unspecified asthma, uncomplicated; Z85.41 Personal history of malignant neoplasm of cervix uteri; F15.90 Other stimulant use, unspecified, uncomplicated; F31.9 Bipolar disorder, unspecified; Z88.0 Allergy status to penicillin; Z88.5 Allergy status to narcotic agent; Z88.8 Allergy status to other drugs, medicaments and biological substances; Z98.51 Tubal ligation status
CPT/HCPCS: 99281

== ENCOUNTER 2025-03-07 10:29 | Emergency (ER) | payer MEDICAID ==
[~2025-03-07] VITALS: Ht 172.7 cm; Wt 92.4 kg
[~2025-03-07 10:29] MED LIST changes: +LISI20TA28 PO
[2025-03-07 10:38] VITALS: BP 165/101; PULSE 70; RESP 16; O2SAT 99
--- NOTE | 2025-03-07 11:12 | Physician Documentation ---
History of Present Illness ~ Chief Complaint: Medical Clearance Stated Complaint: MED CLEARANCE REQUEST Time Seen by MD: 11:06 OK to notify your PCP?: Yes Primary Medical Doctor: YENI LOZADA Source: patient Mode of Arrival: POV Exam Limitations: no limitations HPI 49 year old female who is here for clearance to go to [facility] for detox for three days. She states that she is on methadone and tested positive for fentanyl and methamphetamines and so the program that she is in has required her to go to detox for three days. She last used fentanyl and methamphetamines yesterday. She denies any symptoms of withdrawal as she states she is on methadone. Denies any recent illnesses. Tetanus within 5 years?: Yes Medication Reconciliation Allergies: Coded Allergies: Penicillins (Verified Allergy, Unknown, 03/07/25) codeine (Verified Adverse Reaction, Unknown, GI, 03/07/25) Uncoded Allergies: IV CONTRAST (Allergy, Mild, 01/30/18) Scheduled Albuterol Sulfate (Proventil Hfa), 2 PUFFS INH Q4H Albuterol Sulfate (Ventolin Hfa), 2 PUFFS INH Q4HPRN Azithromycin (Zithromax), 1 DOSPAK PO UD Ciprofloxacin Hcl* (Cipro*), 250 MG PO BID Ciprofloxacin Hcl* (Cipro*), 250 MG PO BID Clindamycin HCl (Clindamycin HCl CAPSULE), 3 CAP PO TID Clindamycin HCl (Clindamycin HCl CAPSULE), 3 CAP PO TID Docusate Sodium (Colace), 1 CAP PO BID Doxycycline Hyclate* (Vibramycin*), 100 MG PO Q12H Hydrocodone Bit/Acetaminophen ([place] 5-325 Tablet), 1 EACH PO Q6H PRN PAIN Hydrocodone Bit/Acetaminophen ([place] 5-325 Tablet), 1 EACH PO Q6H PRN PAIN Ketoconazole (Ketoconazole), 120 ML TP DAILY Lactobacillus Acidophilus (Probiotic), 1 CAP PO Q8H Lisinopril (Lisinopril), 1 TAB PO DAILY Magnesium Citrate (Magnesium Citrate), 296 ML PO once Methocarbamol (Robaxin-750), 1 TAB PO Q8H Methylprednisolone (Medrol), 1 DOSPAK PO UD Nitrofurantoin Monohyd/M-Cryst (Macrobid 100 mg Capsule), 1 CAP PO BID Nitrofurantoin Monohyd/M-Cryst (Macrobid 100 mg Capsule), 1 CAP PO Q12H Nitrofurantoin Monohyd/M-Cryst (Macrobid 100 mg Capsule), 1 CAP PO Q12H Nitrofurantoin/Nitrofuran Mac* (Macrobid*), 100 MG PO BID Ondansetron ODT* (Zofran ODT*), 4 MG PO Q6H Ondansetron ODT* (Zofran ODT*), 4 MG PO Q6H Orphenadrine Citrate (Norflex), 1 TAB PO Q12H PRN Pantoprazole Sodium (Protonix), 1 TABLET PO DAILY Phenazopyridine Hcl (Pyridium tablet), 200 MG PO TIDWM Phenazopyridine Hcl (Pyridium tablet), 200 MG PO TID Prednisone (Prednisone), 10 MG PO BID Scheduled PRN Cyclobenzaprine* (Cyclobenzaprine*), 1 TABLET PO Q8H PRN for muscle spasms Hydrocodone/Acetaminophen ([place] 5-325 Tablet), 1 TABLET PO Q4H PRN for pain ONDANSETRON ODT 4mg tablet (Ondansetron Odt), 1 TABLET PO TID PRN for nausea/vomiting Ondansetron Hcl (Zofran), 1 TAB PO Q6H PRN for nausea/vomiting Oxycodone HCl/Acetaminophen (Endocet 10-325 mg Tablet), 1 TAB PO Q8H PRN for pain Miscellaneous Medications Home Med List (No Home Medications), (Reported) Past Medical History Past Medical History: Hypertension, Asthma, Hepatitis C, UTI, Chronic Back Pain, MRSA Abscess, Cervical Cancer/Dysplasia, Bipolar Past Surgical History: cancer surgery, orthopedic surgeries, tubal ligation, other Other Past Family History: Hypertension, CAD Alcohol Use: None Drug Use: methamphetamine Lives with: Mother Lives In: Home Occupation: unemployed Review of Systems All Other Systems at this time: Reviewed and Negative Physical Exam Vital Signs: Temperature: 97.2, Source: Temporal, Heart Rate: 70, Respiratory Rate: 16, BP: 165/101, Pulse Oximetry: 99, Weight: 92.400 Physical Exam GENERAL: Alert, no acute distress. HEENT: NCAT, EOMI, PERRL, normal oropharynx, moist oral mucosa. NECK: Supple, trachea midline. CARDIAC: Regular rate and rhythm, no murmurs, rubs, or gallops. PV: Equal distal pulses. No lower extremity edema, cap refill less than 2 seconds. RESPIRATORY: Equal breath sounds, clear to auscultation bilaterally, no respiratory distress. GASTROINTESTINAL: Non distended, soft, nontender, No guarding or rebound. MUSCULOSKELETAL: Normal range of motion, nontender, no swelling. Normal gait. NEUROLOGICAL: Awake, alert, and oriented x 3. SKIN: Warm/dry, no pallor, no rash. PSYCH: Alert and appropriate. Affect congruent with mood. Speech is clear. Good eye contact. Progress Results/Orders Results/Orders Vital Signs 03/07/25 10:38 Temp 97.2 Pulse 70 Resp 16 B/P (MAP) 165/101 Pulse Ox 99 Medical Decision Making Differential Dx:Considerations: Include: Intoxication-Alcohol, Intoxication- Other drug, Personality disorder, Substance abuse disorder, Acute delirium, Closed head injury, Cervical spine injury, Skull fracture, Fracture(s), Abrasion, Contusion, Foreign body, Hematoma, Laceration, Alcohol withdrawl syndrom, Encephalopathy, Hepatitis, Medically stable Departure Time of Disposition: 11:10 Disposition: 01 HOME / SELF CARE / HOMELESS Impression: Primary Impression: Fentanyl use disorder, mild Additional Impression: Methamphetamine use Condition: Stable Discharge Instructions: Medical Screening Exam Additional Instructions: YOU ARE MEDICALLY CLEARED FOR EMPIRE Referrals: NO PRIMARY CARE PROVIDER (PCP) Education Educated: Patient Educated regarding: diagnosis, treatment, need for follow up Signature Scribe Signature: X Attestation: ARVIN DEAN March 07, 2025 11:12
[2025-03-07 11:22] VITALS: TEMP 97.2
== END 2025-03-07 11:25 | disposition home or self-care (01) ==
LOC: ER 10:30
DX: F11.90 Opioid use, unspecified, uncomplicated (principal); F15.90 Other stimulant use, unspecified, uncomplicated; J45.909 Unspecified asthma, uncomplicated; I10 Essential (primary) hypertension; G89.29 Other chronic pain; M54.9 Dorsalgia, unspecified; F31.9 Bipolar disorder, unspecified; Z85.41 Personal history of malignant neoplasm of cervix uteri; Z88.0 Allergy status to penicillin; Z88.5 Allergy status to narcotic agent; Z98.51 Tubal ligation status; Z79.899 Other long term (current) drug therapy; Z56.0 Unemployment, unspecified
CPT/HCPCS: 99281

== ENCOUNTER 2025-06-20 14:23 | Emergency (ER) | payer MEDICAID ==
[~2025-06-20] VITALS: Ht 172.7 cm; Wt 87.0 kg
[~2025-06-20 14:23] MED LIST changes: -LISI20TA28 PO
[2025-06-20] MEDS: ondansetron 4mg rapidly disintigrating tab PO ONE (14:35)
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
--- NOTE | 2025-06-20 15:17 | RADIOLOGY REPORT ---
CHEST RADIOGRAPH Indication: trauma, right chest pain Technique: Single frontal view of the chest was obtained Comparison: DI RIBS,UNILAT on DOS: 05/21/24, DI CHEST,SINGLE VIEW on DOS: 05/21/24, CHEST,SINGLE VIEW o n DOS: 08/13/22, CHEST,SINGLE VIEW on DOS: 03/07/22 FINDINGS: Lines and Tubes: None Lungs: No focal consolidation. Pleura: No effusion. No pneumothorax. Cardiomediastinal contours: Unremarkable Bones: No acute osseous abnormality. IMPRESSION: No acute cardiopulmonary disease.
--- NOTE | 2025-06-20 15:17 | RADIOLOGY REPORT ---
EXAM: DI CLAVICLE CLINICAL INDICATION: trauma, pain TECHNIQUE: DI CLAVICLE Comparison: DI RIBS,UNILAT on DOS: 05/21/24, DI CHEST,SINGLE VIEW on DOS: 05/21/24, CHEST,SINGLE VIEW o n DOS: 08/13/22, CHEST,SINGLE VIEW on DOS: 03/07/22 FINDINGS/IMPRESSION: There is no evidence of acute fracture or dislocation. The visualized joint space is well maintained. The alignment is anatomical. There is no radiopaque foreign body.
--- NOTE | 2025-06-20 15:17 | RADIOLOGY REPORT ---
EXAM: DI SHOULDER, COMPLETE (MIN 2 VWS), DI ELBOW, COMPLETE (3VW MIN) CLINICAL INDICATION: trauma, pain TECHNIQUE: DI SHOULDER, COMPLETE (MIN 2 VWS), DI ELBOW, COMPLETE (3VW MIN) Comparison: None FINDINGS/IMPRESSION: There is no evidence of acute fracture or dislocation. The visualized joint space is well maintained. The alignment is anatomical. There is no radiopaque foreign body.
[2025-06-20] MEDS ORDERED: IBUP-1986 PO (16:21)
[2025-06-20] MEDS ORDERED: ACET-1025 PO (16:21)
[2025-06-20] MEDS: ketorolac trometh 30MG/ML vial 30 MG/ML VIAL IM STA (16:47)
[2025-06-20 16:58] VITALS: BP 177/112; PULSE 95; RESP 16; TEMP 98.1; O2SAT 99
== END 2025-06-20 16:54 | disposition home or self-care (01) ==
LOC: ER 14:23
DX: S46.811A Strain of other muscles, fascia and tendons at shoulder and upper arm level, right arm, initial encounter (principal); I10 Essential (primary) hypertension; J45.909 Unspecified asthma, uncomplicated; F31.9 Bipolar disorder, unspecified; F15.90 Other stimulant use, unspecified, uncomplicated; Z85.41 Personal history of malignant neoplasm of cervix uteri; Z88.0 Allergy status to penicillin; Z88.5 Allergy status to narcotic agent; Z98.51 Tubal ligation status; Z79.899 Other long term (current) drug therapy; Z56.0 Unemployment, unspecified; V98.8XXA Other specified transport accidents, initial encounter; Y93.55 Activity, bike riding; Y92.89 Other specified places as the place of occurrence of the external cause; Y99.8 Other external cause status
CPT/HCPCS: 71045; 73000; 73030; 73080; 96372; 99284; J1171; J1885; A4565